=== PATIENT | male | born 1940 | race Caucasian/White ===

== ENCOUNTER 2024-07-21 18:30 | Emergency (ER) | payer BC, SELFPAY ==
[2024-07-21 18:37] VITALS: BP 131/85
[2024-07-21 18:56] LABS: % Basophils 1.1 % (0-2); % Eosinophils 0.8 % (0-6); % Immature Granulocytes 0.3 % (0-0.5); % Lymphocytes 15.7 % (20.5-51.1); % Monocytes 13.1 % (1.7-9.3); Absolute Basophils 0.1 10^3/uL (0-0.2); Absolute Eosinophils 0.1 10^3/uL (0-0.7); Absolute Monocytes 0.8 10^3/uL (0.1-0.6); Absolute Neutrophils 4.3 10^3/uL (1.4-6.5); Hematocrit 42.4 % (39.0-52.0); Hemoglobin 14.4 g/dL (13.0-18.0); Mean Corpuscular Hgb 30.6 pg (27.0-31.0); Mean Platelet Volume 9.5 fL (7.4-10.4); Nucleated Red Blood Cells % 0 % (-); Platelet Count 188 10^3/uL (130-400); Red Blood Cell Count 4.71 10^6/uL (4.70-6.10); Red Cell Dist. Width 13.2 % (11.5-14.5); White Blood Cell Count 6.2 10^3/uL (4.8-10.8)
[2024-07-21 19:10] LABS: COVID-19 Antigen Negative (Negative)
[2024-07-21 19:15] LABS: ALT (SGPT) 16 U/L (0-50); AST (SGOT) 25 U/L (17-59); Albumin 3.9 g/dl (3.5-5.0); Alkaline Phosphatase 139 U/L (38-126); Blood Urea Nitrogen 14 mg/dl (9-20); Calcium 8.9 mg/dl (8.4-10.2); Carbon Dioxide 25 mmol/L (22-30); Chloride 97 mmol/L (98-107); Glucose 102 mg/dl (70-99); Potassium 4.5 mmol/L (3.5-5.1); Sodium 130 mmol/L (135-145); Total Bilirubin 0.8 mg/dl (0.2-1.3); Total Protein 6.9 g/dl (6.3-8.2); eGFR > 60.00
[2024-07-21 20:37] VITALS: BP 142/83; BMI 18.5
[2024-07-21] MEDS: NSS 500 IV (20:49)
[2024-07-21 21:00] VITALS: BP 164/89
--- NOTE | 2024-07-21 21:11 | ED.GENMED ---
Addendum entered and electronically signed by Stewart Bauman Jr., PA-C 07/22/24 20:37:
X-ray was subsequently read as possible right middle lobe pneumonia. Patient listed phone numbers were contacted multiple times and messages left for call back.
Original Note:
History of Present Illness
General
Chief Complaint: Weakness
Source: patient
Exam Limitations: none
Time Seen by Provider: 07/21/24 20:26
Nursing documentation reviewed up to this point in time: agreed with
History of Present Illness
History of Present Illness:
83-year-old male presenting to the emergency department today with concerns of generalized weakness fatigue over the past 2 weeks decreased appetite and oral intake some ongoing nausea. Also has had some upper respiratory symptoms and a cough.
Review of Systems
Review of Systems
Allergies reviewed?: Yes
All Other Systems: ROS reviewed and negative except as documented in HPI and ROS
Phy Exam
Physical Exam
Physical Exam:
GENERAL: Alert , in no apparent distress
EYE: pupils equal and reactive
NECK: Supple, no significant adenopathy.
ENT: o/p clr, mmm.
CARDIAC: Regular rate and rhythm .
LUNGS: Clear breath sounds bilaterally, no acute respiratory distress, no wheezes/rales/rhonchi
ABDOMEN: Soft, without focal tenderness, no r/g, no cvat
NEUROLOGICAL: Alert and oriented, no focal neuro deficits
SKIN: Warm and dry, skin intact.
MUSCULOSKELETAL: No edema, well perfused.
PSYCH: Normal and appropriate interaction.
Course
Orders/Labs/Results
Orders:
Orders
07/21/24 18:41
EKG [Electrocardiogram (*1)] Urgent
Reason for Study: Fatigue / Weakness
07/21/24 18:42
EKG- Treatment ONCE
07/21/24 18:46
CBC/With Diff [Complete Blood Count/With Diff] Urgent
COVID-19 Antigen Urgent
Source: Nasal Swab
Comprehensive Metabolic Panel Urgent
Magnesium Urgent
Comment: ADD ON
TSH Reflex To Free T4 Urgent
Comment: ADD ON
INF RAPID [Influenza A+B Rapid Molecular] Urgent
ERIC Source: Nasal Swab
Specimen Description:
07/21/24 20:47
Chest [CR Chest - 2 Views ] Urgent
Comment:
Reason For Exam: sob weakness
07/21/24 20:48
Add On- LAB Urgent
Tests Added?: magnesium, tsh free t4
Urinalysis Reflex To Culture Urgent
0.9% Sodium Chloride 500 ml [Nss] 500 ml IV BOLUS
07/21/24 23:29
Dexamethasone [Decadron] 10 mg PO NOW STA
Ondansetron HCl [Zofran] 4 mg PO NOW STA
Abnormal Lab Results
07/21/24
18:46
Absolute Lymphs (auto) 1.0 L 10^3/uL
(1.2-3.4)
Absolute Monos (auto) 0.8 H 10^3/uL
(0.1-0.6)
Lymphocytes % 15.7 L %
(20.5-51.1)
Monocytes % 13.1 H %
(1.7-9.3)
Sodium 130 L mmol/L
(135-145)
Chloride 97 L mmol/L
(98-107)
Glucose 102 H mg/dl
(70-99)
Alkaline Phosphatase 139 H U/L
(38-126)
07/21/24 18:46
07/21/24 18:46
Vital Signs
Initial and Last Documented VS:
Initial Vital Signs
Temp Pulse Resp BP Pulse Ox
98.9 F 65 16 131/85 95
07/21/24 18:37 07/21/24 18:37 07/21/24 18:37 07/21/24 18:37 07/21/24 18:37
Last Documented Vital Signs
Temp Pulse Resp BP Pulse Ox
97.6 F 78 18 142/66 95
07/21/24 23:00 07/21/24 23:00 07/21/24 23:00 07/21/24 23:00 07/21/24 23:00
MDM/Problems Addressed
MDM/Problems Addressed:
83-year-old male presenting to the emergency department today with concerns of generalized weakness fatigue over the past 2 weeks decreased appetite as well. No specific symptoms otherwise other than some mild upper respiratory symptoms and cough.
Chest x-ray without evidence of acute pathology some slight abnormalities to electrolytes on labs was given a liter of fluid. Names a few much better he was able to stand up and walk in the room. No evidence of emergent pathology at this point
patient without evidence of acute emergent pathology advised for close outpatient follow-up return precautions given.
*Critical Care Note
Total Time (30-74mins, 75-104mins- exclusive of procedures): Not Applicable
ED Attending Note
-
Portions of this chart may have been created with voice recognition software.� Occasional wrong word or��sound alike� substitutions may have occurred due to the inherent limitations of voice recognition software.
Discharge Plan
Departure
Patient Disposition: Home (Routine Discharge)
Date of Disposition: 07/21/24
Time of Disposition: 23:31
Patient with high blood pressure during this ER visit?: No
Condition: Good
Covid-19: Not Applicable
Discharge Problem:
Nausea, Generalized weakness
Instructions: Generalized Weakness (DC)
Referrals:
Destinee Ayala DO [Family Provider] -
Activity Restrictions/Additional Instructions:
You came to the emergency department today with concerns of generalized fatigue over the past few weeks. Here you have a reassuring assessment. Please follow closely with the primary care doctor. Return to the emergency department for any
worsening, new or concerning symptoms.
Interventions
Interventions:
*Risk Screen - Suicide Last Done: 07/21/24 18:37
*General Assessment Last Done: 07/21/24 20:38
*Neglect/Abuse Screening Last Done: 07/21/24 18:37
*ED COVID-19 Vaccine History Last Done: 07/21/24 20:38
ED- Cardiac Assessment Last Done: 07/21/24 20:38
ED- Neurological Assessment Last Done: 07/21/24 20:38
ED- Pulmonary Assessment Last Done: 07/21/24 20:38
Discharge Date and Time
Print Language: NEPALI
[2024-07-21 21:20] LABS: Magnesium 1.9 mg/dl (1.6-2.3)
[2024-07-21 23:00] VITALS: BP 142/66
[2024-07-21 23:34] LABS: TSH Reflex To Free T4 1.32 uIU/ml (0.47-4.68)
[2024-07-21] MEDS: DECADRON 10 MG PO (23:36)
[2024-07-21] MEDS: ZOFRAN 4 MG PO (23:36)
--- NOTE | 2024-07-23 10:49 | ED.ADDNOTE ---
ED Addendum
ED Addendum
ED Addendum Note:
Patient returned a phone call which she received yesterday regarding radiology discrepancy showing a mild right middle lobe pneumonia. Patient is not short of breath currently07/23/2024 1049 AM
And is not having a fever but he does feel weak and has a cough. Since he is symptomatic I will cover him with antibiotics. He does not take any chronic medications. Doxy and azithromycin sent to the pharmacy
== END 2024-07-21 23:54 | disposition home or self-care (01) ==
LOC: EMR 18:30
PROVIDERS: Emergency Medicine; EMERGENCY PHYSICIAN Emergency Medicine; FAMILY PHYSICIAN Family Medicine
DX: R11.0 Nausea (principal); R53.1 Weakness
CPT/HCPCS: 99283; 71046; 80053; 83735; 84443; 85025; 87502; 87811; 93005

== ENCOUNTER 2024-07-26 19:39 | Emergency (ER) | payer BC, SELFPAY ==
[2024-07-26 19:41] VITALS: BP 144/82
[2024-07-26 20:03] LABS: % Basophils 0.7 % (0-2); % Immature Granulocytes 0.2 % (0-0.5); % Lymphocytes 22.6 % (20.5-51.1); % Monocytes 12.2 % (1.7-9.3); % Neutrophils 60.3 % (42.2-75.2); Absolute Eosinophils 0.2 10^3/uL (0-0.7); Absolute Lymphocytes 1.4 10^3/uL (1.2-3.4); Absolute Monocytes 0.7 10^3/uL (0.1-0.6); Absolute Neutrophils 3.7 10^3/uL (1.4-6.5); Hemoglobin 15.1 g/dL (13.0-18.0); Mean Corp Hgb Conc. 34.3 g/dL (33.0-37.0); Mean Corpuscular Hgb 31.1 pg (27.0-31.0); Mean Corpuscular Volume 90.5 fL (80.0-94.0); Mean Platelet Volume 9.7 fL (7.4-10.4); Nucleated Red Blood Cells % 0 % (-); Platelet Count 160 10^3/uL (130-400); Red Blood Cell Count 4.86 10^6/uL (4.70-6.10); White Blood Cell Count 6.1 10^3/uL (4.8-10.8)
[2024-07-26 20:24] LABS: ALT (SGPT) 18 U/L (0-50); AST (SGOT) 28 U/L (17-59); Albumin 4.1 g/dl (3.5-5.0); Alkaline Phosphatase 123 U/L (38-126); Blood Urea Nitrogen 18 mg/dl (9-20); Calcium 9.2 mg/dl (8.4-10.2); Carbon Dioxide 23 mmol/L (22-30); Chloride 94 mmol/L (98-107); Glucose 96 mg/dl (70-99); Potassium 4.1 mmol/L (3.5-5.1); Sodium 130 mmol/L (135-145); eGFR > 60.00
== END 2024-07-26 22:51 | disposition left against medical advice (07) ==
LOC: EMR 19:39
PROVIDERS: EMERGENCY PHYSICIAN Student in an Organized Health Care Education/Training Program
DX: R06.02 Shortness of breath (principal); R53.1 Weakness; Z53.21 Procedure and treatment not carried out due to patient leaving prior to being seen by health care provider
CPT/HCPCS: 80053; 85025; 93005

== ENCOUNTER → 2025-05-03 09:44 | Outpatient (REF) | payer BC, SELFPAY | LOC: RST 09:44 | PROVIDERS: ATTENDING PHYSICIAN Otolaryngology | DX: R13.12 Dysphagia, oropharyngeal phase (principal) | CPT/HCPCS: 74230; 92611 ==